=== PATIENT | female | born 1960 | race Caucasian/White ===

== ENCOUNTER 2022-10-22 16:44 | Inpatient (IN) | payer OTHER ==
[~2022-10-22] VITALS: Ht 165.1 cm; Wt 99.8 kg
--- NOTE | 2022-10-22 07:40 | NUR ---
RECEIVED PT ADMISSION FROM ER. PT COMING FROM HOME WITH A CHIEF COMPLAINT OF CHEST PAIN. DIAGNOSIS: STABLE ANGINA. PT WITH HISTORY OF DM AND HTN. PT IS FULL CODE AND AMBULATORY TO REST ROOM. DIET IS CONSISTENT CARB. PT IS CONTINENT. IV SITE IS ON LEFT AC 20G. SKIN INTACT AND PATENT. ORIENT PT TO HER ROOM AND EDUCATE PT ABOUT CONTROLLER OF TV MONITOR.
[~2022-10-22 16:44] MED LIST: CEFD300C3 PO; CIPR500T4 PO; HYDR-5080 PO; LISI-486 PO; METO-460 PO
[2022-10-22 16:47] VITALS: BP 143/72; PULSE 82; RESP 20; O2SAT 99
[2022-10-22 17:27] LABS: BASOPHILS # (AUTO) 0.1 K/uL (0.00-0.22); BASOPHILS % (AUTO) 0.9 % (0.0-2.0); EOSINOPHILS # (AUTO) 0.2 K/uL (0-0.4); EOSINOPHILS % (AUTO) 2.6 % (0.0-4.0); HEMATOCRIT 39.5 % (36-48); HEMOGLOBIN 13.3 g/dL (12.0-16.0); LYMPHOCYTES # (AUTO) 3.2 K/uL (2.5-16.5); LYMPHOCYTES % (AUTO) 34.2 % (20.5-51.1); MEAN CORPUSCULAR HEMOGLOBIN 29 pg (27-31); MEAN CORPUSCULAR HGB CONC 34 g/dL (33-37); MEAN CORPUSCULAR VOLUME 86.5 fL (80-94); MONOCYTES # (AUTO) 0.9 K/uL (0.8-1.0); MONOCYTES % (AUTO) 9.8 % (1.7-9.3); NEUTROPHILS # (AUTO) 4.9 K/uL (1.8-7.7); NEUTROPHILS % (AUTO) 52.5 % (42.2-75.2); PLATELET COUNT (AUTO) 275 K/uL (140-450); RED BLOOD CELL COUNT(AUTO) 4.57 MIL/uL (4.20-5.40); WHITE BLOOD COUNT (AUTO) 9.2 K/uL (4.8-10.8)
[2022-10-22] MEDS ORDERED: ASPIRIN 325 MG TAB PO ONE (17:30)
[2022-10-22] MEDS ORDERED: NITROGLYCERIN 0.4 MG TAB SL ONE (17:30)
[2022-10-22 17:41] LABS: PROTHROMBIN TIME 9.9 secs (10.8-13.4)
[2022-10-22 17:45] LABS: ALBUMIN 3.6 g/dL (3.4-5.0); ANION GAP 12.3 (8-16); CARBON DIOXIDE 29.9 mmol/L (21-32); CREATININE 0.9 mg/dL (0.6-1.3); POTASSIUM 3.2 mmol/L (3.5-5.1); TOTAL BILIRUBIN 0.4 mg/dL (0.0-1.0)
--- NOTE | 2022-10-22 17:54 | NUR ---
Pt bibs for sternal/epigastric pain. Pt is unable to differentiate. Pt states pain is a burn and gets worse whenever she eats, states she has not been eating due to pain. Pt is a/o x 4, vss, no ss of acute distress, breathing equal and unlabored, speech clear. Labs drawn by lab. IV started, as ordered by . Pt on monitor. Medicated as ordered tolerating well. Pt made aware of possibility of headache after nitro.
[2022-10-22] MEDS ORDERED: NACL 0.9% 1,000 ML IV ONE (18:00)
--- NOTE | 2022-10-22 18:31 | NUR ---
pt back from ct
[2022-10-22] MEDS ORDERED: ASPIRIN 325 MG TAB ONE (18:47)
[2022-10-22] MEDS ORDERED: POTASSIUM CHLORIDE 10 MEQ TABER PO ONE (20:40)
--- NOTE | 2022-10-22 20:42 | NUR ---
AMBULATED TO BR WITH STEADY GAIT
--- NOTE | 2022-10-22 21:55 | NUR ---
asked for consent for patient to give out information but per pt only speak to jazmyne cabral
[2022-10-22] MEDS ORDERED: POTASSIUM CHLORIDE 10 MEQ TABER PO PRN (22:05)
[2022-10-22] MEDS ORDERED: ACETAMINOPHEN 325 MG TAB PO PRN (22:05)
[2022-10-22] MEDS ORDERED: KCL 20 MEQ IN 100 mL PREMIX 200 ML IV PRN (22:05)
[2022-10-22] MEDS ORDERED: MORPHINE SULFATE 4 MG/ML SYR IVP PRN (22:05)
[2022-10-22] MEDS ORDERED: HYDROcodone/APAP 5/325 MG 1 TAB TAB PO PRN (22:05)
[2022-10-22] MEDS ORDERED: ONDANSETRON 4 MG/2 ML VIAL IVP PRN (22:05)
[2022-10-22] MEDS ORDERED: MAG SULF 2000 MG/WATER PREMIX 50 ML IV PRN (22:05)
[2022-10-22] MEDS ORDERED: MAGNESIUM OXIDE 400 MG TAB PO PRN (22:05)
--- NOTE | 2022-10-22 22:51 | NUR ---
Patient will be admitted to care of Beatriz DAVILA. Admited to Telemetry. Will go to room 111A. Belongings list completed. Report to [facility].
[2022-10-22 23:20] VITALS: BP 124/70; PULSE 66; PULSE 70; RESP 18; TEMP 98.1; O2SAT 97
[2022-10-22 23:40] VITALS: PULSE 72
--- NOTE | 2022-10-23 02:00 | NUR ---
PT IS SLEEPING WELL. NO SOB SOB DISTRESS. NO FACIAL GRIMACING.
[2022-10-23 04:00] VITALS: BP 121/52; PULSE 65; PULSE 70; RESP 18; TEMP 97.3; O2SAT 94
--- NOTE | 2022-10-23 05:00 | NUR ---
PT DENIES OF PAIN.
[2022-10-23 06:51] LABS: BASOPHILS % (AUTO) 0.6 % (0.0-2.0); EOSINOPHILS # (AUTO) 0.3 K/uL (0-0.4); EOSINOPHILS % (AUTO) 3.4 % (0.0-4.0); HEMATOCRIT 39.6 % (36-48); HEMOGLOBIN 13.4 g/dL (12.0-16.0); LYMPHOCYTES # (AUTO) 2.6 K/uL (2.5-16.5); LYMPHOCYTES % (AUTO) 33.9 % (20.5-51.1); MEAN CORPUSCULAR HEMOGLOBIN 29 pg (27-31); MEAN CORPUSCULAR HGB CONC 34 g/dL (33-37); MEAN CORPUSCULAR VOLUME 86.2 fL (80-94); MONOCYTES # (AUTO) 0.7 K/uL (0.8-1.0); MONOCYTES % (AUTO) 9.6 % (1.7-9.3); NEUTROPHILS % (AUTO) 52.5 % (42.2-75.2); PLATELET COUNT (AUTO) 263 K/uL (140-450); RED BLOOD CELL COUNT(AUTO) 4.59 MIL/uL (4.20-5.40); RED CELL DISTRIBUTION WIDTH 13.9 % (11.6-13.7); WHITE BLOOD COUNT (AUTO) 7.6 K/uL (4.8-10.8)
[2022-10-23 07:07] LABS: ALBUMIN 3.5 g/dL (3.4-5.0); CARBON DIOXIDE 31.4 mmol/L (21-32); CREATININE 0.8 mg/dL (0.6-1.3); MAGNESIUM 2.1 mg/dL (1.8-2.4); POTASSIUM 3.4 mmol/L (3.5-5.1); TOTAL BILIRUBIN 0.4 mg/dL (0.0-1.0)
[2022-10-23 08:00] VITALS: BP 96/42; PULSE 63; PULSE 71; RESP 18; TEMP 98; O2SAT 98
--- NOTE | 2022-10-23 11:22 | NUR ---
PATIENT HAS BEEN SCREENED AND CATEGORIZED LOW NUTRITION RISK. PATIENT WILL BE SEEN WITHIN 7 DAYS OF ADMISSION. 10/29/22 [facility] REFERRAL RECEIVED NOT APPLICABLE [address]
[2022-10-23 12:00] VITALS: BP 128/55; PULSE 63; PULSE 67; RESP 18; TEMP 96.8; O2SAT 97
[2022-10-23 16:00] VITALS: BP 147/70; PULSE 65; PULSE 68; RESP 18; TEMP 96.8; O2SAT 96
[2022-10-23] MEDS ORDERED: ALUMINUM HYD/MAG/SIMETHICONE 30 ML UDC PO SCH ×2 (17:00→19:40)
[2022-10-23] MEDS ORDERED: DICYCLOMINE HCL LIQUID 10 MG/5 ML UDC PO SCH ×2 (17:00→19:40)
--- NOTE | 2022-10-23 18:48 | NUR ---
DR. RIVAS WAS HERE AND ORDERED GI COCKTAIL D/T PATIENT'S HEPATIC STEATOSIS CONDITION ELEVATED D-DIMER W/ STABLE ANGINA. WILL CONTINUE TO MONITOR
--- NOTE | 2022-10-23 19:30 | NUR ---
RECEIVED PT FROM DAY SHIFT NURSE FOR CONTINUITY OF CARE. PT IS AWAKE, ALERT AND ORIENTED X 4, AMBULATORY, ON ROOM AIR. IV ON L AC, G 20, PATENT AND INTACT. PT COMPLAINING OF HEADACHE, PRN TYLENOL WAS GIVEN. ALL PRECAUTIONS IN PLACE .CALL LIGHT WITHIN REACH. WILL CONTINUE TO MONITOR.
[2022-10-23 20:00] VITALS: BP 150/75; PULSE 70; PULSE 76; RESP 18; TEMP 98.2; O2SAT 98
--- NOTE | 2022-10-23 21:00 | NUR ---
GI COCKTAIL WAS ADMINISTERED. PT TOLERATED WELL. WILL CONTINUE TO MONITOR.
[2022-10-24] VITALS: BP 147/77; PULSE 65; RESP 18; TEMP 98; O2SAT 98
--- NOTE | 2022-10-24 01:15 | NUR ---
PT ASLEEP. CHEST RISE AND FALL NOTED. ALL PRECAUTIONS IN PLACE. CALL LIGHT WITHIN REACH. WILL CONTINUE TO MONITOR.
--- NOTE | 2022-10-24 03:50 | NUR ---
VITALS STABLE. NO ACUTE DISTRESS NOTED. NO COMPLAINS OF PAIN. ALL NEEDS MET. WILL CONTINUE TO MONITOR.
[2022-10-24 04:00] VITALS: BP 129/62; PULSE 61; PULSE 74; PULSE 91; RESP 18; TEMP 98; O2SAT 98
[2022-10-24 06:36] LABS: BASOPHILS # (AUTO) 0.1 K/uL (0.00-0.22); BASOPHILS % (AUTO) 1.1 % (0.0-2.0); EOSINOPHILS # (AUTO) 0.3 K/uL (0-0.4); HEMATOCRIT 38.5 % (36-48); LYMPHOCYTES # (AUTO) 2.5 K/uL (2.5-16.5); LYMPHOCYTES % (AUTO) 39.5 % (20.5-51.1); MEAN CORPUSCULAR HEMOGLOBIN 29 pg (27-31); MEAN CORPUSCULAR HGB CONC 34 g/dL (33-37); MEAN CORPUSCULAR VOLUME 86.8 fL (80-94); MONOCYTES # (AUTO) 0.8 K/uL (0.8-1.0); MONOCYTES % (AUTO) 11.8 % (1.7-9.3); NEUTROPHILS # (AUTO) 2.8 K/uL (1.8-7.7); NEUTROPHILS % (AUTO) 43.6 % (42.2-75.2); PLATELET COUNT (AUTO) 261 K/uL (140-450); RED BLOOD CELL COUNT(AUTO) 4.44 MIL/uL (4.20-5.40); RED CELL DISTRIBUTION WIDTH 13.6 % (11.6-13.7); WHITE BLOOD COUNT (AUTO) 6.4 K/uL (4.8-10.8)
--- NOTE | 2022-10-24 06:54 | NUR ---
PT IS STABLE. NO ACUTE EVENTS OVERNIGHT. NO S/SX OF DISTRESS AT THE MOMENT. ALL NEEDS MET. NO PAIN AT THIS MOMENT. ALL PRECAUTIONS IN PLACE. CALL LIGHT WITHIN REACH. WILL ENDORSE TO AM SHIFT NURSE.
[2022-10-24 06:58] LABS: ALBUMIN 3.3 g/dL (3.4-5.0); ANION GAP 10.8 (8-16); CARBON DIOXIDE 30.8 mmol/L (21-32); CREATININE 0.7 mg/dL (0.6-1.3); MAGNESIUM 2.3 mg/dL (1.8-2.4); POTASSIUM 3.6 mmol/L (3.5-5.1); TOTAL BILIRUBIN 0.4 mg/dL (0.0-1.0)
--- NOTE | 2022-10-24 07:19 | NUR ---
RECEIVED REPORT FROM MARGIN ANALYST NURSE FOR CONTINUITY OF CARE. PATIENT IS AWAKE, ALERT AND ORIENTED X4, WELSH SPEAKING BUT DOES UNDERSTAND NAURUAN. CURRENTLY ON ROOM AIR WITH NO APPARENT SIGNS OF ACUTE DISTRESS NOTED. PATIENT STATES HAVING MODERATE PAIN IN CHEST. IV SITE LOCATED AT LEFT AC 20 GAUGE, INTACT AND PATENT. SKIN IS WARM DRY AND INTACT. POC DISCUSSED, CALL LIGHT PLACED WITHIN REACH, WHITE BOARD UPDATED.
[2022-10-24 08:00] VITALS: BP 123/55; PULSE 58; PULSE 60; PULSE 78; RESP 18; TEMP 97.5; O2SAT 97; O2SAT 98
--- NOTE | 2022-10-24 08:00 | NUR ---
Patient's Plan of Care was discussed and reviewed with CAIT: OG
[2022-10-24] MEDS ORDERED: PANT40EC56 PO (08:57)
[2022-10-24] MEDS ORDERED: ASPI81CT95 PO (08:57)
[2022-10-24] MEDS ORDERED: ATOR20TA40 PO (08:57)
[2022-10-24] MEDS ORDERED: PANTOPRAZOLE 40 MG TABEC PO SCH (09:00)
[2022-10-24] MEDS ORDERED: ATORVASTATIN 20 MG TAB PO SCH (09:00)
[2022-10-24] MEDS ORDERED: ASPIRIN 81 MG TAB.CHEW PO SCH (09:00)
--- NOTE | 2022-10-24 09:10 | NUR ---
SCHEDULED MEDICATIONS ADMINISTERED WITH NO COMPLICATIONS. ADMINISTERED NORCO 5/325 MG PO PRN FOR A PAIN LEVEL OF 5/10. PT TOLERATED WELL, WILL REASSESS PAIN LEVEL IN ONE HOUR.
--- NOTE | 2022-10-24 10:03 | NUR ---
REASSESSED PATIENTS PAIN LEVEL. PATIENT REPORTS NO PAIN. PAIN INTERVENTION EFFECTIVE. WILL CONTINUE TO MONITOR THE PT.
[2022-10-24 10:39] VITALS: BP 123/55; PULSE 60; RESP 18; TEMP 97.5
--- NOTE | 2022-10-24 10:45 | NUR ---
CALLED DR [facility] LOCATED AT [address] [place], [place] [id number]. SPOKE WITH DESTINI WHO WAS ABLE TO HELP ME SCHEDULE A FOLLOW UP APPOINTMENT FOR 10/31/2022 AT 1400. WENT TO BEDSIDE TO INFORM PATIENT OF THE ABOVE NEOFORMATION AND ALSO GAVE APPOINTMENT SLIP WITH THAT SAME INFORMATION.
--- NOTE | 2022-10-24 11:30 | NUR ---
PATIENT DISCHARGED TO HOME. ID BAND AND IV SITE REMOVED. ALL BELONGINGS WITH THE PATIENT. PATIENT WAS PICKED UP BY FAMILY.
== END 2022-10-24 11:30 | disposition home or self-care (01) | DRG 203 ==
LOC: MED 16:44 → OBSVTOIN 22:07 → MTU 22:07
PROVIDERS: ADMIT Hospitalist; ATTEND Emergency Medicine
DX: M94.0 Chondrocostal junction syndrome [Tietze] (principal); E11.9 Type 2 diabetes mellitus without complications; I10 Essential (primary) hypertension; Z79.899 Other long term (current) drug therapy; Z90.710 Acquired absence of both cervix and uterus; R73.03 Prediabetes
CPT/HCPCS: 36415; 71045; 71275; 80053; 83735; 83880; 84484; 85025; 85379; 85610; 85730; 87081; 99285; J1644; Q9967